=== PATIENT | male | born 1975 | race Caucasian/White ===

== ENCOUNTER 2023-05-05 11:08 | Outpatient (REF) | payer OTHER, SELFPAY ==
[2023-05-05 13:17] LABS: Appearance Urine Clear; Color Urine Yellow; Glucose Urine UA Negative (Negative); Leukocyte Esterase Urine Negative (Negative); Nitrite Urine Negative (Negative); PH 7.5 (5.0-9.0); Urine Blood Negative (Negative); Urine Ketones Negative (Negative); Urine Protein Negative (Neg-Trace)
[2023-05-05 13:25] LABS: MANUAL DIFF FLAG NO
[2023-05-05 13:39] LABS: Basophils Percent Auto 0.5 % (0-2); Eosinophils Absolute Auto 0.1 X10*3/uL (0.0-0.4); Eosinophils Percent Auto 1.9 % (0-4); Hematocrit 43.5 % (42.0-52.0); Hemoglobin 15.2 g/dl (14.0-18.0); Imm Gran Abs Auto 0.02 X10*3/uL (0.00-0.03); Imm Gran Pct Auto 0.3 % (0.0-0.4); Lymphocytes Absolute Auto 1.5 X10*3/uL (1.2-4.9); Lymphocytes Percent Auto 24.8 % (20-40); Mean Corpuscular HGB Conc 34.9 g/dl (31.0-36.0); Mean Corpuscular Volume 80.1 fL (80.0-98.0); Monocytes Absolute Auto 0.4 X10*3/uL (0.1-1.2); Monocytes Percent Auto 6.3 % (2-11); Neutrophils Absolute Auto 3.9 x10*3/uL (2.0-8.3); Neutrophils Percent Auto 66.2 % (45-73); Platelet Count 173 X10*3/uL (160-400); Red Blood Count 5.43 X10*6/uL (4.60-5.80); Red Cell Distribution Width 13.4 % (11.0-16.0); White Blood Count 5.9 X10*3/uL (4.8-10.8)
[2023-05-05 13:59] LABS: Alanine Aminotransferase 17 U/L (0-40); Albumin Level 4.6 g/dL (3.5-5.0); Alkaline Phosphatase 80 U/L (39-117); Anion Gap 6 (12-20); Aspartate Amino Transferase 21 U/L (5-37); Bilirubin Direct 0.2 mg/dL (0.0-0.5); Bilirubin Total 0.6 mg/dL (0.0-1.0); Blood Urea Nitrogen 13 mg/dL (9-16); Calcium 9.5 mg/dL (8.4-10.2); Carbon Dioxide 31 mmol/L (22-29); Chloride 108 mmol/L (96-108); Estimated Glomerular Filt Rate > 60; Glucose Random 93 mg/dL (60-115); Lipase 24 U/L (8-78); Potassium 4.4 mmol/L (3.3-5.1); Sodium 141 mmol/L (135-145); Total Protein 6.6 g/dL (6.5-8.0)
[2023-05-05 16:24] LABS: Amylase 66 U/L (28-100)
== END 2023-05-05 11:09 | disposition home or self-care (01) ==
LOC: HO.10HDL 11:08
PROVIDERS: Visit Provider Internal Medicine
DX: R10.32 Left lower quadrant pain (principal)
CPT/HCPCS: 36415; 80048; 80076; 81003; 82150; 83690; 85025

== ENCOUNTER 2023-05-12 14:00 | Outpatient (REF) | payer OTHER, SELFPAY ==
--- NOTE | ~2023-05-12 | CT_ITS ---
EXAMINATION: CT ABDOMEN AND PELVIS WITH CONTRAST CLINICAL INFORMATION: Left lower quadrant pain. COMPARISON: Abdominal ultrasound dated 01/14/2013. TECHNIQUE: Multidetector volumetric images were obtained from the superior aspect of the liver through the pubic symphysis following administration 85 mL of Omnipaque 350 intravenous contrast. Sagittal and coronal reformatted images were obtained on the technologist's workstation. Oral contrast: No This CT examination was performed using dose optimization techniques as appropriate, variously including the following: *Automated exposure control *Adjustment of mA and/or kV according to patient size (this includes techniques or standardized protocols for targeted exams where dose is matched to indication/reason for exam; i.e. extremities or head) *Use of iterative reconstruction technique DLP: 465 mGy-cm FINDINGS: LUNG BASES: There is mild bibasilar hypoaeration, right greater than left. LIVER, GALLBLADDER, AND BILIARY TREE: The liver is normal in size, shape, and attenuation. Within the posterior segment of the right hepatic lobe (3:20), a 2.5 cm benign hemangioma is redemonstrated, with peripheral clumped enhancement. There are further 7 mm and 6 mm left lobe and 8 mm hepatic tail low-attenuation probable cysts, too small for full characterization with CT. No biliary ductal dilatation is present. The gallbladder is unremarkable with no evidence of radiopaque gallstones, gallbladder wall thickening, or obvious pericholecystic inflammatory changes. PANCREAS: Unremarkable. SPLEEN: There is mild splenomegaly, with a longitudinal span in the axial plane of 13.4 cm. ADRENAL GLANDS: Unremarkable. KIDNEYS AND URETERS: The kidneys are normal in size, shape, and attenuation. No hydronephrosis, hydroureter, or calculi seen. No perinephric stranding. BLADDER: Unremarkable. GASTROINTESTINAL TRACT: There is a moderate stool burden, suggesting possible constipation. No obstruction, free intraperitoneal air or abscess is seen. There is no focal bowel wall thickening. No diverticulosis or diverticulitis is seen. The vermiform appendix is unremarkable. ABDOMINAL WALL: There is a tiny fat-containing umbilical hernia. LYMPH NODES: Normal. VASCULAR: Unremarkable. PELVIC VISCERA: The prostate and seminal vesicles are unremarkable. There is a coarse central prostate calcification. OSSEOUS STRUCTURES: There is multi-level thoracolumbar Schmorl's node formation. Anteriorly within the T9 vertebral body (8:64), a sclerotic, well marginated benign-appearing probable bone island is seen, of doubtful clinical significance. At L5-S1, there is marked degenerative disc disease, with vacuum disc phenomenon, endplate arthropathy and a 5 mm retrolisthesis. There is no acute or aggressive osseous finding. CT/CT abdomen pelvis w IV con IMPRESSION: 1. Findings suggest possible constipation, without matthew bowel obstruction. 2. There is mild splenomegaly. 3. A 2.5 cm right hepatic lobe benign hemangioma is redemonstrated. There are 3 further low-attenuation probable cysts or benign hemangiomas within the bilateral hepatic lobes. These are of doubtful clinical significance. If of continued clinical concern (i.e., history of hepatocellular disease or known malignancy), these can be further evaluated with ultrasound or MRI. 4. There is degenerative disc disease at L5-S1. A sclerotic probable bone island is seen within the T9 vertebral body, which in the absence of pain at this location or malignancy is consistent with a benign bone island and of doubtful clinical significance. If of continued clinical concern, this can be further evaluated with MRI or nuclear bone scan. Fleischner guidelines were followed.
[2023-05-12] MEDS: iohexoL 350 MG/ML 100 ML INFUS..BTL IV (16:44)
[2023-05-12] MEDS: Barium Sulfate Oral (Berry) 450 ML ORAL.SUSP 900 ML PO (16:45)
== END 2023-05-12 14:01 | disposition home or self-care (01) ==
LOC: HO.CT 14:00
PROVIDERS: Visit Provider Internal Medicine
DX: R10.32 Left lower quadrant pain (principal)
CPT/HCPCS: 74177; Q9967